=== PATIENT | male | born 1990 | race Caucasian/White ===

== ENCOUNTER 2017-12-24 21:41 | Emergency (ER) | payer SELFPAY ==
[~2017-12-24] VITALS: Ht 177.8 cm; Wt 68.5 kg
[2017-12-24 22:15] VITALS: BP 132/70
[2017-12-24] MEDS ORDERED: NKM (22:18)
[2017-12-24] MEDS ORDERED: Ketorolac 30mg Inj IV ONE (23:00)
[2017-12-24 23:38] LABS: HEMATOCRIT 43.6 % (42.0-52.0); HEMOGLOBIN 15.1 G/DL (14.2-18.0); MEAN CORPUSCULAR VOLUME 90 FL (80-99); PLATELET COUNT 171 K/UL (150-450); RED BLOOD COUNT 4.84 M/UL (4.70-6.10); RED CELL DISTRIBUTION WIDTH 11.2 % (11.6-14.8); WHITE BLOOD COUNT 11.5 K/UL (4.8-10.8)
[2017-12-24 23:41] LABS: APPEARANCE,URINE CLEAR; BILIRUBIN, URINE NEGATIVE (NEGATIVE); GLUCOSE, URINE (UA) NEGATIVE (NEGATIVE); KETONES,URINE NEGATIVE (NEGATIVE); LEUKOCYTE ESTERASE ,URINE NEGATIVE (NEGATIVE); NITRITE,URINE NEGATIVE (NEGATIVE); PH,URINE 6 (4.5-8.0); PROTEIN,URINE NEGATIVE (NEGATIVE); UROBILINOGEN,URINE NORMAL MG/DL (0.0-1.0)
[2017-12-24 23:45] LABS: COLOR,URINE YELLOW
[2017-12-24 23:48] LABS: ANION GAP 6 mmol/L (5-15); BLOOD UREA NITROGEN 10 mg/dL (7-18); CALCIUM 9.2 MG/DL (8.5-10.1); CARBON DIOXIDE 30 MMOL/L (21-32); CHLORIDE 100 MMOL/L (98-107); SODIUM 136 MMOL/L (136-145)
[2017-12-25] MEDS ORDERED: IBUPROFEN600 MG ORAL (00:48)
[2017-12-25] MEDS ORDERED: TAMIFLU75 MG ORAL (00:48)
--- NOTE | 2017-12-25 00:51 | Emergency Room Report ---
History of Present Illness General Chief Complaint: Fever Source: Patient Present Illness HPI Is a 27-year-old male with no suture past medical history. He presents with chief complaint of fever and influenza-like illness for the last 72 hours. Has diffuse body pain. Also with congestion in some nausea and vomiting and diarrhea. Has not anything for this. He is worried that he may have meningitis. Allergies: Coded Allergies: No Known Allergies (Unverified , 12/24/17) Patient History Past Medical History: see triage record, old chart reviewed Past Surgical History: none Pertinent Family History: none Social History: Reports: drug use - Marijuana Immunizations: other Reviewed Nursing Documentation: PMH: Agreed, PSxH: Agreed Nursing Documentation-PMH Past Medical History: No Stated History Review of Systems Constitutional: Reports: chills, fever, malaise Eye: Denies: eye pain, blurred vision ENT: Denies: ear pain, nose congestion, throat swelling Respiratory: Reports: cough, Denies: shortness of breath Cardiovascular: Denies: chest pain, palpitations Gastrointestinal: Reports: abdominal pain, diarrhea, nausea, vomiting Musculoskeletal: Denies: back pain, joint pain Skin: Denies: rash Neurological: Denies: headache, numbness Endocrine: Denies: increased thirst, increased urine Hematologic/Lymphatic: Denies: easy bruising All Other Systems: negative except mentioned in HPI Physical Exam Vital Signs Date Time Temp Pulse Resp B/P (MAP) Pulse Ox O2 Delivery O2 Flow Rate FiO2 12/24/17 22:08 97.2 96 16 130/69 95 Room Air vitals normal Sp02 EP Interpretation: reviewed, normal General Appearance: well appearing, no apparent distress, alert, other - Sedated and sleepy. Said that he took some MJ edible prior to arrival Head: normocephalic, atraumatic Eyes: bilateral eye PERRL, bilateral eye EOMI ENT: hearing grossly normal, normal pharynx Neck: full range of motion, supple, no meningismus Respiratory: chest non-tender, lungs clear, normal breath sounds Cardiovascular #1: regular rate, rhythm, no murmur Gastrointestinal: normal bowel sounds, non tender, no mass, no organomegaly, no bruit, non-distended Musculoskeletal: back normal, gait/station normal, normal range of motion Psychiatric: mood/affect normal Skin: warm/dry Medical Decision Making Diagnostic Impression: Primary Impression: Influenza-like illness ER Course This patient presents with a viral/influenza-like illness. No evidence of meningitis. He is moving his neck freely. No evidence of sepsis or pneumonia. No evidence of other serious bacterial infection. Last Vital Signs Date Time Temp Pulse Resp B/P (MAP) Pulse Ox O2 Delivery O2 Flow Rate FiO2 12/24/17 22:15 97.6 78 17 132/70 99 Room Air Status: improved Disposition: HOME, SELF-CARE Condition: Stable Scripts Oseltamivir Phosphate (Tamiflu) 75 Mg Capsule 75 MG ORAL TWICE A DAY, #10 CAP Prov: KAILEY BROWN M.D. 12/25/17 Ibuprofen* (MOTRIN*) 600 Mg Tablet 600 MG ORAL Q8H Y for For Pain, #30 TAB 0 Refills Prov: KAILEY BROWN M.D. 12/25/17 Referrals: NOT CHOSEN [facility]/,REFERRING (PCP) Additional Instructions: followup with your DrTashi in 7 days. return if Symptom worsen KAILEY BROWN M.D. Dec 25, 2017 00:51
[2017-12-25 01:00] VITALS: BP 130/72
[2017-12-25 01:05] VITALS: BP 130/72
== END 2017-12-25 01:05 | disposition home or self-care (01) ==
LOC: EMR 22:48
DX: J11.1 Influenza due to unidentified influenza virus with other respiratory manifestations (principal)
CPT/HCPCS: 36415; 80048; 81001; 85025; 96361; 96374; 99284; J1885